=== PATIENT | male | born 1995 | race Two or more races ===

== ENCOUNTER 2017-01-27 17:36 | Emergency (ER) | payer OTHER ==
[~2017-01-27] VITALS: Ht 177.8 cm; Wt 69.4 kg
[2017-01-27 17:37] VITALS: BP 119/76
== END 2017-01-27 18:44 | disposition home or self-care (01) ==
LOC: ER 17:38
DX: J30.9 Allergic rhinitis, unspecified (principal); B34.9 Viral infection, unspecified
CPT/HCPCS: 99283; A4606; Z7610

== ENCOUNTER 2017-02-01 14:54 | Emergency (ER) | payer OTHER ==
[~2017-02-01] VITALS: Ht 175.3 cm; Wt 70.3 kg
[2017-02-01 14:54] VITALS: BP 123/73
== END 2017-02-01 16:17 | disposition home or self-care (01) ==
LOC: ER 14:55
DX: J40 Bronchitis, not specified as acute or chronic (principal)
CPT/HCPCS: 99283; A4606; Z7610